=== PATIENT | male | born 1995 | race American Indian/Alaskan Native ===

== ENCOUNTER 2019-02-08 12:24 | Emergency (ER) | payer SELFPAY ==
--- NOTE | 2019-02-08 13:07 | Event Note ---
ED Screening Note ED Screening Note: states he punched a tree with right hand early this morning never injured before right hand dominant no PMHx no allergies to meds This initial assessment/diagnostic orders/clinical plan/treatment(s) is/are subject to change based on patients health status, clinical progression and re- assessment by fellow clinical providers in the ED. Further treatment and workup at subsequent clinical providers discretion. Patient/guardian urged not to elope from the ED as their condition may be serious if not clinically assessed and managed. Initial orders include: XR right hand
--- NOTE | 2019-02-08 13:37 | XRay Report ---
RIGHT HAND, 3 VIEWS INDICATION: right hand pain. COMPARISON: None. IMPRESSION: There is poor separation of the fingers. No acute osseous abnormality or joint pathology is identified. Mild diffuse soft tissue swelling is suspected. Signer Name: Tesfaye Kat Jr, MD Signed: 02/08/2019 1:33 PM Workstation Name: [id number]
--- NOTE | 2019-02-08 15:08 | Emergency Department Report ---
ED Upper Extremity Inj HPI - General Chief Complaint: Extremity Injury, Upper Stated Complaint: RT HAND INJURY/PAIN Time Seen by Provider: 02/08/19 13:05 Source: patient Mode of arrival: Ambulatory Limitations: No Limitations - History of Present Illness Initial Comments: This is a 23-year-old male nontoxic, well nourished in appearance, no acute signs of distress presents to the ED with c/o of right hand/wrist pain. Patient stated that he punched the tree today. Patient denies any other trauma. Patient denies any numbness, tingling, fever, chills, nausea, vomiting, chest pain, shortness of breath, headache, stiff neck. Patient denies any joint swelling or joint redness. Patient had some decreased range of motion. Patient denies any allergies or significant past medical history. MD Complaint: Injury to:: right, wrist, hand -: This afternoon Other Extremity Injury: Hand: Right, Wrist: Right Other Injuries: none Place: outdoors Severity scale (0 -10): 8 Improves With: immobilization Worsens With: movement of extremity Context: direct blow Associated Symptoms: denies other symptoms. denies: weakness, numbness, neck pain, suspects foreign body, nausea/vomiting, heard/felt popping sensat - Related Data Previous Rx's Medication Instructions Recorded Last Taken Type Naproxen 500 mg PO Q8H PRN #20 tablet 02/08/19 Unknown Rx Allergies Allergy/AdvReac Type Severity Reaction Status Date / Time No Known Allergies Allergy Verified 02/08/19 12:32 ED Review of Systems ROS: Stated complaint: RT HAND INJURY/PAIN Other details as noted in HPI Constitutional: denies: chills, fever Eyes: denies: eye pain, eye discharge, vision change ENT: denies: ear pain, throat pain Respiratory: denies: cough, shortness of breath, wheezing Cardiovascular: denies: chest pain, palpitations Endocrine: no symptoms reported Gastrointestinal: denies: abdominal pain, nausea, diarrhea Genitourinary: denies: urgency, dysuria Musculoskeletal: denies: back pain, joint swelling, arthralgia Skin: denies: rash, lesions Neurological: denies: headache, weakness, paresthesias Psychiatric: denies: anxiety, depression Hematological/Lymphatic: denies: easy bleeding, easy bruising ED Past Medical Hx - Past Medical History Hx Hypertension: No Hx Asthma: No - Surgical History Past Surgical History?: No - Social History Smoking Status: Never Smoker Substance Use Type: None - Medications Home Medications: Home Medications Medication Instructions Recorded Confirmed Last Taken Type Naproxen 500 mg PO Q8H PRN #20 tablet 02/08/19 Unknown Rx ED Physical Exam - General Limitations: No Limitations General appearance: alert, in no apparent distress - Head Head exam: Present: atraumatic, normocephalic - Extremities Exam Extremities exam: Present: normal inspection, full ROM, tenderness, normal capillary refill. Absent: joint swelling - Expanded Upper Extremity Exam Right General: Present: normal inspection Shoulder Exam: Present: normal inspection, full ROM. Absent: tenderness, swelling Upper Arm exam: Present: normal inspection, full ROM. Absent: tenderness, swelling Elbow exam: Present: normal inspection, full ROM. Absent: tenderness, swelling Forearm Wrist exam: Present: normal inspection, full ROM. Absent: tenderness, swelling Hand Wrist exam: Present: normal inspection, full ROM, tenderness, swelling, ecchymosis. Absent: abrasion, laceration, deformity, crepidus, dislocation, erythema, amputation, nail avulsion, subungual hematoma Hand L/R Back: 1 - pain here Vascular: Present: vascular compromise, normal capillary refill - Back Exam Back exam: Present: normal inspection, full ROM. Absent: tenderness - Neurological Exam Neurological exam: Present: alert, oriented X3, normal gait - Psychiatric Psychiatric exam: Present: normal affect, normal mood. Absent: depressed, agitated, homicidal ideation, suicidal ideation - Skin Skin exam: Present: warm, dry, intact, normal color. Absent: rash ED Course Vital Signs 02/08/19 02/08/19 12:32 15:16 Temperature 98.2 F Pulse Rate 99 H 88 Respiratory 19 Rate Blood Pressure 172/119 Blood Pressure 141/104 [Left] O2 Sat by Pulse 100 Oximetry - Reevaluation(s) Reevaluation #1: 02/08/19 15:24 Patient is speaking in full sentences with no signs of distress noted. ED Medical Decision Making - Medical Decision Making This is a 23-year-old male that presents with right wrist/hand strain. Patient is stable and was examined by me. I referred patient to an orthopedic doctor for further evaluation for possible MRI. X-ray has been obtained and dictated by the radiologist. Patient is notified of the x-ray report with noted by the patient. Patient does have normal gait with no tenderness and no joint swelling. No ecchymosis. no joint redness or swelling. Not warm to touch. No signs of cellulites present. Patient received a wrist immobilize for pain comfort. Patient was instructed to RICE therapy. Patient received Motrin for pain. Patient is discharged with Naproxen. Patient was also instructed to follow-up with a primary care for his hypertension. Blood pressure readings was and 140s/100s but patient is asymptomatic. According to ACE[facility]: In ED patients with asymptomatic markedly elevated blood pressure, routine screening for acute target organ injury (eg, serum creatinine, urinalysis, ECG) is not required; ) In patients with asymptomatic markedly elevated blood pressure, routine ED medical intervention is not required. At time of discharge, the patient does not seem toxic or ill in appearance. No acute signs of distress noted. Patient agrees to discharge treatment plan of care. No further questions noted by the patient. Critical care attestation.: If time is entered above; I have spent that time in minutes in the direct care of this critically ill patient, excluding procedure time. ED Disposition Clinical Impression: Contusion of right hand Qualifiers: Encounter type: initial encounter Qualified Code(s): S60.221A - Contusion of right hand, initial encounter Disposition: DC- TO HOME OR SELFCARE Is pt being admited?: No Does the pt Need Aspirin: No Condition: Stable Instructions: RICE Therapy (ED) Additional Instructions: Follow-up with a orthopedic doctor in 3-5 days or if symptoms worsen and continue return to emergency room as soon as possible. Prescriptions: Naproxen 500 mg PO Q8H PRN #20 tablet PRN Reason: Pain, Moderate (4-6) Referrals: PRIMARY MD URIEL [Primary Care Provider] - 3-5 Days POLO EMERY MD [Staff Physician] - 3-5 Days [facility] [Outside] - 3-5 Days
[2019-02-08 15:16] VITALS: BP 141/104
[2019-02-08] MEDS ORDERED: IBUPROFEN 800 MG TAB PO ONE (15:19)
== END 2019-02-08 15:54 | disposition home or self-care (01) ==
LOC: ED 12:24
DX: S60.221A Contusion of right hand, initial encounter (principal); W22.8XXA Striking against or struck by other objects, initial encounter; Y93.89 Activity, other specified; Y92.410 Unspecified street and highway as the place of occurrence of the external cause; Y99.8 Other external cause status

== ENCOUNTER 2019-04-11 15:27 | Emergency (ER) | payer SELFPAY ==
--- NOTE | 2019-04-11 17:00 | Emergency Department Report ---
Blank Doc - Documentation Documentation: 23-year-old male that presents upper lip laceration. This initial assessment/diagnostic orders/clinical plan/treatment(s) is/are subject to change based on patient's health status, clinical progression and re- assessment by fellow clinical providers in the ED. Further treatment and workup at subsequent clinical providers discretion. Patient/guardians urged not to elope from the ED as their condition may be serious if not clinically assessed and managed. Initial orders include: 1- Patient sent to [facility] for further evaluation and treatment
[2019-04-11] MEDS ORDERED: SODIUM CHLORIDE 0.9% IRR 500 ML BOTTLE IR PRN (19:57)
[2019-04-11] MEDS ORDERED: LIDOCAINE (2%) 20 MG/1 ML VIAL 20 ML MDV INFILTRATI ONE (19:57)
--- NOTE | 2019-04-11 19:58 | Emergency Department Report ---
- General Chief Complaint: Wound/Laceration Stated Complaint: DOMESTIC/LIP INJURY Time Seen by Provider: 04/11/19 16:59 Source: patient Mode of arrival: Ambulatory Limitations: No Limitations - History of Present Illness Initial Comments: Patient is a 23-year-old gentleman with no chronic medical conditions, unknown to this provider, up-to-date with tetanus vaccination, presenting with accidental 1 cm linear superior lateral lip laceration, denies other injuries, denies other complaints. -: Sudden, hour(s) Location: face (right superior lateral lip[facility] Patient Tetanus UTD: Yes Context: accidental Associated Symptoms: none - Related Data Previous Rx's Medication Instructions Recorded Last Taken Type Naproxen 500 mg PO Q8H PRN #20 tablet 02/08/19 Unknown Rx Allergies Allergy/AdvReac Type Severity Reaction Status Date / Time No Known Allergies Allergy Verified 02/08/19 12:32 ED Review of Systems ROS: Stated complaint: DOMESTIC/LIP INJURY Other details as noted in HPI Constitutional: see HPI Eyes: as per HPI ENT: as per HPI, other (right superior lateral lip laceration) Respiratory: see HPI Endocrine: see HPI Gastrointestinal: as per HPI Genitourinary: as per HPI Musculoskeletal: as per HPI Skin: as per HPI Neurological: as per HPI Psychiatric: as per HPI Hematological/Lymphatic: as per HPI ED Past Medical Hx - Past Medical History Previous Medical History?: No Hx Hypertension: No Hx Asthma: No - Surgical History Past Surgical History?: No - Social History Smoking Status: Never Smoker Substance Use Type: None - Medications Home Medications: Home Medications Medication Instructions Recorded Confirmed Last Taken Type Naproxen 500 mg PO Q8H PRN #20 tablet 02/08/19 Unknown Rx ED Physical Exam - General Limitations: No Limitations General appearance: alert, in no apparent distress - Head Head exam: Present: atraumatic, normocephalic - Eye Eye exam: Present: normal appearance, EOMI. Absent: nystagmus - ENT ENT exam: Present: normal orophraynx, mucous membranes moist, normal external ear exam, other (there is a linear 0.8 cm superior lateral lip laceration, with no foreign body, no contamination, involves the vermilion border) - Neck Neck exam: Present: normal inspection, full ROM. Absent: tenderness, meningismus - Respiratory Respiratory exam: Present: normal lung sounds bilaterally. Absent: respiratory distress - Cardiovascular Cardiovascular Exam: Present: regular rate, normal rhythm, normal heart sounds. Absent: bradycardia, tachycardia, irregular rhythm, systolic murmur, diastolic murmur, rubs, gallop - GI/Abdominal GI/Abdominal exam: Present: soft. Absent: distended, tenderness, guarding, rebound, rigid, pulsatile mass - Rectal Rectal exam: Present: deferred - Extremities Exam Extremities exam: Present: normal inspection, full ROM, other (2+ pulses noted in the bilateral upper and lower extremities. There is no long bony tenderness. The pelvis is stable. The muscular compartments are soft. There is no palpable cord.). Absent: pedal edema, calf tenderness - Back Exam Back exam: Present: normal inspection, full ROM. Absent: tenderness, CVA tenderness (R), CVA tenderness (L), paraspinal tenderness, vertebral tenderness - Neurological Exam Neurological exam: Present: alert, normal gait, other (The extraocular movements are intact bilaterally. There is no facial droop. The tongue is midline. Phonating in normal sentences. Hearing is intact grossly. Walking with a steady gait. 5/5 strength with 4 extremities. Sensation intact to light touch in 4 extremities. Appropriate thought content. GCS 15.). Absent: motor sensory deficit - Psychiatric Psychiatric exam: Present: anxious - Skin Skin exam: Present: warm, dry, intact, normal color. Absent: rash ED Course Vital Signs 04/11/19 17:00 Temperature 98 F Pulse Rate 82 Respiratory 18 Rate Blood Pressure 160/112 O2 Sat by Pulse 99 Oximetry - Laceration /Wound Repair Right Upper Lateral Face Wound Location: mouth Wound Length (cm): 1 (approximately 0.8 cm) Wound's Depth, Shape: linear Wound Explored: clean Irrigated w/ Saline (ccs): 200 Betadine Prep?: No Anesthesia: 1% Lidocaine Volume Anesthetic (ccs): 2 Wound Debrided: minimal Suture Size/Type: 5:0 (monofilament, interrupted, nonabsorbable) Number of Sutures: 2 Layer Closure?: No Sterile Dressing Applied?: No ED Medical Decision Making - Medical Decision Making Vital Signs 04/11/19 17:00 Temperature 98 F Pulse Rate 82 Respiratory 18 Rate Blood Pressure 160/112 O2 Sat by Pulse 99 Oximetry Differential diagnosis, including not limited to: Superficial accidental right superior lateral lip laceration Assessment and plan: 23-year-old gentleman with simple lip laceration, no other injuries or complaints. Laceration is repaired with 2 interrupted 5-0 monofilament interrupted sutures, with good cosmetic approximation. Patient tolerated the procedure well. The remainder of his physical exam is unremarkable. He can follow up with an outpatient physician for blood pressure recheck. He does not appear to have an emergency medical condition at this time. Return precautions are reviewed. Critical care attestation.: If time is entered above; I have spent that time in minutes in the direct care of this critically ill patient, excluding procedure time. ED Disposition Clinical Impression: Laceration of lip Qualifiers: Encounter type: initial encounter Qualified Code(s): S01.511A - Laceration without foreign body of lip, initial encounter Disposition: TO HOME OR SELFCARE Is pt being admited?: No Does the pt Need Aspirin: No Condition: Stable Instructions: Laceration (ED) Additional Instructions: Patient may wash face and sutures with gentle soap and water every 12-24 hours. Rest, avoid heavy lifting, and avoid stretching of the face and/or lip. Stitches should be taken out in 4-5 days, patient may follow-up with the primary care doctor, urgent care center, plastic surgeon, or ENT physician. Please note that all lacerations will cause scars, and if the patient would like to have his scar revised by an ENT physician or plastic surgeon, he may do so and follow-up in 6-8 months after the initial injury. Patient may take [id number] Tylenol and ibuprofen as needed for pain. Warm compresses as needed for discomfort and swelling. Return to the emergency room right away with new, worsening or different symptoms, or symptoms not present on the initial emergency room evaluation. For the patient's convenience, local ENT physician, and local plastic surgeon have been listed. Referrals: RAMILA FREY MD [Staff Physician] - as needed GUERLINE MUHAMMAD MD [Staff Physician] - as needed
[2019-04-11 22:29] VITALS: BP 155/92
== END 2019-04-11 21:14 | disposition home or self-care (01) ==
LOC: ED 15:27
DX: S01.511A Laceration without foreign body of lip, initial encounter (principal); Z79.899 Other long term (current) drug therapy; X58.XXXA Exposure to other specified factors, initial encounter; Y93.89 Activity, other specified; Y92.89 Other specified places as the place of occurrence of the external cause; Y99.8 Other external cause status

== ENCOUNTER 2019-07-08 05:35 | Emergency (ER) | payer SELFPAY ==
[2019-07-08 05:48] VITALS: BP 151/91
== END 2019-07-08 05:46 | disposition left against medical advice (07) ==
LOC: ED 05:35
DX: R10.9 Unspecified abdominal pain (principal); Z53.21 Procedure and treatment not carried out due to patient leaving prior to being seen by health care provider

== ENCOUNTER 2020-08-23 10:08 | Emergency (ER) | payer SELFPAY ==
[2020-08-23 11:52] VITALS: BP 165/112
--- NOTE | 2020-08-23 12:13 | Emergency Department Report ---
ED General Adult HPI - General Chief complaint: Sore Throat Stated complaint: SOB, HEADACHE, SORE THROAT, ABD PAIN Time Seen by Provider: 08/23/20 12:08 Source: patient Mode of arrival: Ambulatory Limitations: No Limitations - History of Present Illness Initial comments: 25-year-old -[place] male patient presents with complaints of sore throat days. Patient states the throat pain worsens with swallowing and rates his pain as a 4/10 in severity. He denies any melena/hematochezia, fever/chills/sweats, chest pain, vomiting, cough, or shortness of breath. No past medical history per patient. Patient states he had Covid 6 weeks ago. No recent sick contacts per patient -: Sudden - Related Data Previous Rx's Medication Instructions Recorded Last Taken Type Naproxen 500 mg PO Q8H PRN #20 tablet 02/08/19 Unknown Rx Amoxicillin [Trimox CAP] 500 mg PO BID 10 Days #20 capsule 08/23/20 Unknown Rx Ibuprofen [Motrin 800 MG tab] 800 mg PO Q8HR PRN #15 tablet 08/23/20 Unknown Rx Allergies Allergy/AdvReac Type Severity Reaction Status Date / Time No Known Allergies Allergy Verified 07/08/19 05:48 ED Review of Systems ROS: Stated complaint: SOB, HEADACHE, SORE THROAT, ABD PAIN Other details as noted in HPI Constitutional: malaise. denies: chills, diaphoresis, fever, weakness ENT: throat pain Respiratory: denies: cough, shortness of breath Cardiovascular: denies: chest pain Gastrointestinal: nausea, diarrhea. denies: abdominal pain, vomiting, constipation, hematemesis, melena, hematochezia Genitourinary: denies: urgency, dysuria, frequency, hematuria Skin: denies: rash, lesions Neurological: denies: headache ED Past Medical Hx - Past Medical History Hx Hypertension: No Hx Asthma: No - Social History Smoking Status: Never Smoker - Medications Home Medications: Home Medications Medication Instructions Recorded Confirmed Last Taken Type Naproxen 500 mg PO Q8H PRN #20 tablet 02/08/19 Unknown Rx Amoxicillin [Trimox CAP] 500 mg PO BID 10 Days #20 capsule 08/23/20 Unknown Rx Ibuprofen [Motrin 800 MG tab] 800 mg PO Q8HR PRN #15 tablet 08/23/20 Unknown Rx ED Physical Exam - General Limitations: No Limitations General appearance: alert, in no apparent distress - Head Head exam: Present: atraumatic, normocephalic - Eye Eye exam: Present: normal appearance. Absent: scleral icterus - Expanded ENT Exam Expanded Mouth exam: Absent: drooling, trismus Throat exam: Positive: tonsillar erythema, tonsillomegaly, other (Uvula is midline). Negative: tonsillar exudate, R peritonsillar mass, L peritonsillar mass - Neck Neck exam: Present: full ROM, lymphadenopathy. Absent: tenderness - Respiratory Respiratory exam: Present: normal lung sounds bilaterally. Absent: respiratory distress - Cardiovascular Cardiovascular Exam: Present: regular rate, normal rhythm - GI/Abdominal GI/Abdominal exam: Present: soft, normal bowel sounds. Absent: distended, tenderness, guarding, rebound, rigid - Extremities Exam Extremities exam: Present: full ROM - Neurological Exam Neurological exam: Present: alert, oriented X3 - Psychiatric Psychiatric exam: Present: normal affect, anxious - Skin Skin exam: Present: warm, dry, intact, normal color. Absent: rash ED Course Vital Signs 08/23/20 11:49 Temperature 97.9 F Pulse Rate 90 Respiratory 20 Rate Blood Pressure 165/112 O2 Sat by Pulse 98 Oximetry ED Medical Decision Making - Lab Data Result diagrams: 08/23/20 Unknown - Medical Decision Making 25-year-old -[place] male patient presents with complaints of sore throat days. Patient states the throat pain worsens with swallowing and rates his pain as a 4/10 in severity. He denies any melena/hematochezia, fever/chills/sweats, chest pain, vomiting, cough, or shortness of breath. No past medical history per patient. Patient states he had Covid 6 weeks ago. No recent sick contacts per patient We will treat for strep pharyngitis. Recommend OTC Lomotil as needed for diarrhea. Blood pressure noted to be significantly elevated. Upon review of patient's chart, blood pressure noted to be elevated on multiple visits around the same level. Patient denies history of hypertension. He states his blood pressure was normal at his PCPs office 1 month ago. Recommend patient follow-up with PCP for recheck of blood pressure in 2 days and further treatment. At this time he denies any chest pain, shortness of breath, headache, dizziness, difficulty with speech/ambulation, or numbness/tingling/weakness in his limbs. Discussed signs and symptoms that should prompt immediate return to emergency department in detail with patient who verbalized understanding. Critical care attestation.: If time is entered above; I have spent that time in minutes in the direct care of this critically ill patient, excluding procedure time. ED Disposition Clinical Impression: Acute bacterial pharyngitis, Elevated blood pressure reading Disposition: TO HOME OR SELFCARE Is pt being admited?: No Condition: Stable Instructions: Strep Throat, Adult, Hypertension, Adult Additional Instructions: Please purchase [id number] Lomotil and use as needed for diarrhea Prescriptions: Ibuprofen [Motrin 800 MG tab] 800 mg PO Q8HR PRN #15 tablet PRN Reason: pain Amoxicillin [Trimox CAP] 500 mg PO BID 10 Days #20 capsule Referrals: [facility] [Provider Group] - 3-5 Days
[2020-08-23 15:16] LABS: Basophils % (Auto) 0.8 % (0.0-1.8); Eosinophils # (Auto) 0.6 K/mm3 (0.0-0.4); Eosinophils % (Auto) 12.6 % (0.0-4.3); Hematocrit 45.7 % (35.5-45.6); Hemoglobin 15.9 gm/dl (11.8-15.2); Lymphocytes # (Auto) 1.1 K/mm3 (1.2-5.4); Lymphocytes % (Auto) 22.9 % (13.4-35.0); Mean Corpuscular HGB Conc 35 % (32-34); Mean Corpuscular Volume 95 fl (84-94); Monocytes # (Auto) 0.3 K/mm3 (0.0-0.8); Monocytes % (Auto) 5.6 % (0.0-7.3); Platelet Count 226 K/mm3 (140-440); Red Blood Count 4.83 M/mm3 (3.65-5.03)
[2020-08-23 16:50] LABS: Alanine Aminotransferase 45 units/L (7-56); Albumin 5.2 g/dL (3.9-5); BUN/Creatinine Ratio 9; Blood Urea Nitrogen 8 mg/dL (9-20); Calcium 9.4 mg/dL (8.4-10.2); Hemolysis Index 9
== END 2020-08-23 16:16 | disposition home or self-care (01) ==
LOC: ED 10:08
DX: J02.8 Acute pharyngitis due to other specified organisms (principal); B96.89 Other specified bacterial agents as the cause of diseases classified elsewhere; R03.0 Elevated blood-pressure reading, without diagnosis of hypertension; Z79.899 Other long term (current) drug therapy
CPT/HCPCS: 36415; 80053; 85025; 99283